=== PATIENT | male | born 1980 | race African-American/Black ===

== ENCOUNTER 2024-07-23 15:37 | Emergency (ER) | payer MEDICAID, OTHER ==
[~2024-07-23] VITALS: Ht 165.1 cm; Wt 82.0 kg
[2024-07-23 15:39] VITALS: TEMP 37.6; O2SAT 99
[2024-07-23 16:44] LABS: BASOPHILS % 0.6 % (0.0-2.0); EOSINOPHILS % 0.1 % (0.0-5.0); HEMATOCRIT. 49.8 % (42.0-52.0); LYMPHOCYTES % 13.7 % (20.0-50.0); MEAN CORPUSCULAR HEMOGLOBIN 29.2 pg (28.0-32.0); MEAN CORPUSCULAR HGB CONC 34.2 g/dL (31.0-37.0); MEAN CORPUSCULAR VOLUME 85.5 fL (80.0-94.0); MEAN PLATELET VOLUME 9.7 fl (7.4-10.4); MONOCYTES % 9.5 % (2.0-8.0); NEUTROPHILS % 76.1 % (40.0-76.0); PLATELET 414 x1000/uL (130-400); RED BLOOD CELL COUNT 5.83 mill/uL (4.7-6.1); RED CELL DISTRIBUTION WIDTH 13.3 % (11.6-14.6); WHITE BLOOD COUNT 18.3 x1000/uL (4.5-11.0)
[2024-07-23 16:46] LABS: CHLORIDE 99 mEq/L (98-107); POTASSIUM 3.5 mEq/L (3.5-5.1); SODIUM 140 mEq/L (136-145)
[2024-07-23 16:47] LABS: CALCIUM 11.1 mg/dL (8.7-10.4); CARBON DIOXIDE 25 mEq/L (21-32)
[2024-07-23 16:52] LABS: CREATININE 1.1 mg/dL (0.6-1.3); GLUCOSE 113 mg/dL (70-105); UREA NITROGEN BLOOD 15 mg/dL (9-23)
[2024-07-23] MEDS: ONDANSETRON HCL 4MG/2ML INJ IV STA (16:53)
[2024-07-23 16:55] VITALS: BP 170/86; PULSE 77; RESP 16
[2024-07-23] MEDS: KETOROLAC 30MG/ML VIAL IV STA (16:55)
[2024-07-23] MEDS: SODIUM CHLORIDE 0.9% 1,000 ML IV ONE (17:07)
[2024-07-23 17:44] LABS: TROPONIN I HIGH SENSITIVITY 8 ng/L (3.0-53)
[2024-07-23] MEDS: MAGNESIUM/ALUMINUM HYDROXIDE/SIMETHICONE 30ML UDC PO ONE (18:03)
[2024-07-23] MEDS: FAMOTIDINE 20MG/2ML VIAL IV ONE (18:03)
[2024-07-23] MEDS ORDERED: FAMO-135 MT (18:57)
[2024-07-23] MEDS ORDERED: MAG355OR21 MT (18:57)
[2024-07-26] MEDS ORDERED: AMLO10TA80 PO (13:00)
[2024-07-26] MEDS ORDERED: ONDA4TAB50 MT (13:00)
[2024-07-26] MEDS ORDERED: PANT20TA17 MT (13:00)
[2024-07-26] MEDS ORDERED: TOPUD PO (13:00)
[2024-07-26] MEDS ORDERED: LIP40 PO (13:00)
== END 2024-07-23 19:15 | disposition home or self-care (01) ==
LOC: ER 15:37
DX: R11.2 Nausea with vomiting, unspecified (principal); F12.90 Cannabis use, unspecified, uncomplicated; Z79.899 Other long term (current) drug therapy
CPT/HCPCS: 80048; 83690; 85025; 84484; 36415; 96361; 96374; 96375; 99284; J3490; J1885; J2405; J7030; Z7610